=== PATIENT | male | born 1975 | race Caucasian/White ===

== ENCOUNTER 2016-06-07 10:46 | Emergency (ER) | payer OTHER ==
[~2016-06-07] VITALS: Ht 180.3 cm; Wt 95.3 kg
[~2016-06-07 10:46] MED LIST: ADVAIR 500-501 EACH INH; ATORVASTATIN CA10 MG; AZITHROMYCIN250 M1 PO; BENTYL20 MG PO; CLEOCIN HCL300 M1 PO; FLAG500 PO; LAMICTAL100 M2 PO; LUNESTA3 M1 PO; MEDROL DOSEPAK1 PAC PO; MEDROL4 M2 PO; MELATONIN10 M2 PO; MOBIC15 MG PO; NAPROSYN 500 M500 MG PO; NEURONTIN400 M1 PO; NEXIUM40 M1 PO; PREDNISONE10 M2 PO; PREDNISONE20 M1 PO; PROAIR HFA8.5 GM INH; SUBOXONE 2 MG-01 FIL SL; SUBOXONE 8 MG-1 EACH SL; SYMBICORT 80-10.2 GM INH
[2016-06-07 10:55] VITALS: BP 128/74
--- NOTE | 2016-06-07 11:16 | ED ANKLE/FOOT INJURY COMPLAINT ---
History of Present Illness General Chief Complaint: Foot or Ankle Injury Stated Complaint: RT FOOT PAIN Source: patient Exam Limitations: no limitations Vital Signs & Intake/Output Vital Signs & Intake/Output ED Intake and Output 06/08 0000 06/07 1200 Intake Total Output Total Balance Patient 210 lb Weight Allergies Coded Allergies: NO KNOWN ALLERGIES (06/24/15) Reconcile Medications Albuterol Sulfate (Proair Hfa) 90 MCG HFA.AER.AD 2 PUF INH Q4-6 PRN PRN SHORTNESS OF BREATH (Reported) Budesonide/Formoterol Fumarate (Symbicort 80-4.5 Mcg Inhaler) 80 MCG-4.5 MCG/ ACTUATION HFA.AER.AD 2 PUF INH BID pna Buprenorphine HCl/Naloxone HCl (Suboxone 8 MG-2 MG Sl Film) 8 MG-2 MG FILM 1 STR SL TID MENTAL HEALTH (Reported) Esomeprazole (Nexium) 40 MG CAPSULE.DR 1 CAP PO DAILY GERD (Reported) Eszopiclone (Lunesta) 3 MG TABLET 1 TAB PO QPM PRN SLEEP (Reported) Fluticasone/Salmeterol (Advair 500-50 Diskus) 500 MCG-50 MCG/DOSE BLST.W.DEV 1 PUF INH BID ASTHMA (Reported) Gabapentin (Neurontin) 400 MG CAPSULE 1,200 MG PO TID PAIN (Reported) Indomethacin 50 MG CAPSULE 1 CAP PO TID gout with food Lamotrigine (Lamictal) 100 MG TABLET 1 TAB PO BID MOOD (Reported) Triage Note: PT COMPLAINS OF PAIN TO BALL OF HIS R FOOT, DENIES INJURY AT THIS TIME. PAIN HAS BEEN X 3 DAYS. REFUSES MEDS AT TRIAGE Triage Nurses Notes Reviewed? yes HPI: This patient is a 41-year-old male who presents to the emergency department today for evaluation of right foot pain. He reported that approximately 3 days ago he noticed that the area was feeling sore. He reported that he thinks he may have dropped a box on it at work, but is not sure and does not think that should be causing this much pain. He reported that when he is walking on his foot the pain gets up to an 8 out of 10 and at rest the pain is a constant 5 out of 10. The pain is throbbing and nonradiating. No palliative factors. He has been taking Motrin with only minimal relief of his symptoms. He denied any ankle pain or knee pain. No numbness or tingling. (BRINDA KUHN PA-C) Past History Travel History Traveled to [place] past 21 day No Medical History Any Pertinent Medical History? 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 No (BRINDA KUHN PA-C) Review of Systems Review of Systems Constitutional: Reports: no symptoms. EENTM: Reports: no symptoms. Respiratory: Reports: no symptoms. Cardiovascular: Reports: no symptoms. GI: Reports: no symptoms. Musculoskeletal: Reports: see HPI. Skin: Reports: no symptoms. Neurological/Psychological: Reports: no symptoms. All Other Systems: Reviewed and Negative (BRNIDA KUHN PA-C) Physical Exam Physical Exam Leg/Knee/Thigh Left: normal range of motion, normal inspection Comments: Well-developed well-nourished person in no acute distress HEENT: Head normocephalic, moist mucous membranes Neck: Supple, no lymphadenopathy Back: Antalgic gait Respiratory: No respiratory distress. Speaking in full sentences Right foot: No edema or overlying erythema or ecchymosis. No bony or muscular deformities appreciated. Dorsalis pedis and posterior tibialis pulses 2+ and strong. Capillary refill less than 2 seconds. Tenderness to palpation over the lateral aspect of the base of the great toe. Neuro: Alert and oriented x3 Psych: Mood affect normal, normal memory normal judgment. Skin: Warm and dry, no rash on exposed skin (BRINDA KUHN PA-C) Progress Differential Diagnosis: cellulitis, septic arthritis, gout, fracture, dislocation, sprain, contusion, compartmental syndrome Plan of Care: Orders Procedure Date/time Status XRY-FOOT COMPLETE, RIGHT 06/07 1107 Active Diagnostic Imaging: Viewed by Me: Radiology Read. Discussed w/RAD: Radiology Read. Radiology Impression: PATIENT: KATRINA WINN PRESENT AGE: 41 PATIENT ACCOUNT NO: [id number] : 77 LOCATION: [facility] ORDERING PHYSICIAN: BRINDA KUHN PA-C SERVICE DATE: 06/07/16 EXAM TYPE: RAD - XRY-FOOT COMPLETE, R EXAMINATION: XR FOOT, RIGHT CLINICAL INFORMATION: Pain, rule out fracture. COMPARISON: None TECHNIQUE: AP, lateral, and oblique views of the right foot. FINDINGS: Bone mineral density is maintained without evidence of fracture or dislocation. No focal osseous lesions are seen. There is mild degenerative changes in the first metatarsophalangeal joint with dorsal spurring off the head of the first metatarsal. IMPRESSION: No fracture or dislocation is seen. DICTATED BY: AUREA KEYES MD DATE/TIME DICTATED:06/07/161140 RECYCLING COORDINATOR:MARIANNA DATE/TIME TRANSCRIBED:1140 CONFIDENTIAL, DO NOT COPY WITHOUT APPROPRIATE AUTHORIZATION. < Electronically signed in Other Vendor System> SIGNED BY: AUREA KEYES MD 06/07/16 1145 (BRINDA KUHN PA-C) Departure Departure Disposition: HOME OR SELF CARE Condition: Stable Clinical Impression Primary Impression: Gout Qualifiers: Gout site: toe Gout etiology: unspecified cause Laterality: right Chronicity: unspecified Qualified Code: M10.9 - Gout, unspecified Referrals: SATNAM VINCENT (PCP/Family) JAIMEE JOHNSON MD Additional Instructions: Please take medication as prescribed. Keep foot elevated when possible. Follow -up with the orthopedist should her symptoms persist. Return for any worsening symptoms or concerns. Departure Forms: Customer Survey General Discharge Information Prescriptions: Current Visit Scripts Indomethacin 1 CAP PO TID #30 CAP with food (BRINDA KUHN PA-C) PA/CART PUSHER Co-Sign Statement Statement: ED Attending supervision documentation- [] I saw and evaluated the patient. I have also reviewed all the pertinent lab results and diagnostic results. I agree with the findings and the plan of care as documented in the PA's/CART PUSHER's documentation. [X] I have reviewed the ED Record and agree with the PA's/CART PUSHER's documentation. [] Additions or exceptions (if any) to the PAs/CART PUSHER's note and plan are summarized below: [] (GREGORY CRAIG,MICHI)
--- NOTE | 2016-06-07 11:45 | RADIOLOGY REPORT ---
EXAMINATION: XR FOOT, RIGHT CLINICAL INFORMATION: Pain, rule out fracture. COMPARISON: None TECHNIQUE: AP, lateral, and oblique views of the right foot. FINDINGS: Bone mineral density is maintained without evidence of fracture or dislocation. No focal osseous lesions are seen. There is mild degenerative changes in the first metatarsophalangeal joint with dorsal spurring off the head of the first metatarsal. IMPRESSION: No fracture or dislocation is seen.
[2016-06-07] MEDS ORDERED: INDOMETHACIN50 M1 PO (11:51)
== END 2016-06-07 11:55 ==
LOC: ERH 10:46
DX: M10.9 Gout, unspecified (principal)
CPT/HCPCS: 73630-RT

== ENCOUNTER 2016-08-31 11:50 | Emergency (ER) | payer OTHER ==
[~2016-08-31] VITALS: Ht 180.3 cm; Wt 90.7 kg
[~2016-08-31 11:50] MED LIST changes: +INDOMETHACIN50 M1 PO
[2016-08-31 11:56] VITALS: BP 109/72
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
[2016-08-31] MEDS ORDERED: CRESTOR10 M1 PO (13:43)
[2016-08-31] MEDS ORDERED: LEVOTHYROXINE25 MCG PO (13:43)
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
--- NOTE | 2016-08-31 14:58 | CT SCAN REPORT ---
EXAMINATION: CT CERVICAL SPINE WITHOUT CONTRAST CLINICAL INFORMATION: Confusion, trauma. COMPARISON: CT 02/26/2016 TECHNIQUE: A noncontrast CT of the cervical spine is performed with sagittal and coronal reformats. DLP: 335 mGy-cm FINDINGS: Normal alignment and cervical lordosis. No fracture. Mild degenerative disc disease at C5-C6, unchanged. No prevertebral soft tissue swelling. Mild degenerative change at the anterior atlantoaxial junction. IMPRESSION: Normal alignment with mild degenerative disc disease at C5-C6 and at the anterior atlantoaxial junction. Normal alignment. No change.
== END 2016-08-31 14:22 | disposition left against medical advice (07) ==
LOC: ERH 11:50
DX: S06.0X0A Concussion without loss of consciousness, initial encounter (principal); V49.40XA Driver injured in collision with unspecified motor vehicles in traffic accident, initial encounter; Y92.9 Unspecified place or not applicable

== ENCOUNTER 2017-08-31 16:37 | Emergency (ER) | payer OTHER ==
[~2017-08-31] VITALS: Ht 180.3 cm; Wt 83.9 kg
[~2017-08-31 16:37] MED LIST changes: +CRESTOR10 M1 PO; +LEVOTHYROXINE25 MCG PO
[2017-08-31 16:41] VITALS: BP 152/83
== END 2017-08-31 17:28 | disposition admitted as inpatient to this hospital (09) ==
LOC: ERH 16:37
DX: S39.92XA Unspecified injury of lower back, initial encounter (principal); W19.XXXA Unspecified fall, initial encounter

== ENCOUNTER 2017-09-27 17:54 | Emergency (ER) | payer OTHER ==
[~2017-09-27] VITALS: Ht 182.9 cm; Wt 90.7 kg
[2017-09-27 19:03] LABS: ABSOLUTE BASOPHIL COUNT 0 /CUMM (0.0-0.2); ABSOLUTE EOSINOPHIL COUNT 0.1 /CUMM (0.0-0.7); ABSOLUTE GRANULOCYTE CT 2.3 /CUMM (1.4-6.5); ABSOLUTE LYMPH COUNT 2.1 /CUMM (1.2-3.4); ABSOLUTE MONOCYTE COUNT 0.4 /CUMM (0.10-0.60); BASOPHIL % 0.4 % (0.0-2.0); EOSINOPHIL % 1.2 % (0-5); GRANULOCYTE % 46.4 % (42.2-75.2); HEMATOCRIT 36.4 % (42-52); MEAN CORPUSCULAR HGB 30.1 PG (27.0-31.0); MEAN CORPUSCULAR HGB CONC 34.2 G/DL (33.0-37.0); MEAN CORPUSCULAR VOLUME 88.1 FL (80.0-94.0); MEAN PLATELET VOLUME 6.9 FL (7.4-10.4); PLATELET COUNT 250 /CUMM (130-400); RBC DISTRIBUTION WIDTH 14.7 % (11.5-14.5); RED BLOOD CELL CT 4.13 /CUMM (4.70-6.10); WHITE BLOOD CELL COUNT 4.9 /CUMM (4.8-10.8)
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
[2017-09-27 19:13] VITALS: BP 122/80
== END 2017-09-27 20:38 ==
LOC: ERH 17:54
PROVIDERS: Emergency Medicine
DX: F10.129 Alcohol abuse with intoxication, unspecified (principal); F11.20 Opioid dependence, uncomplicated; R55 Syncope and collapse
CPT/HCPCS: 80307; 81003; 93005; 93010; G0480